=== PATIENT | female | born 1990 | race Caucasian/White ===

== ENCOUNTER 2019-06-19 11:16 | Outpatient (RCR) | payer OTHER, SELFPAY ==
[2019-06-19 12:51] LABS: Hematocrit 29.6 % (37.0-47.0); Hemoglobin 10.3 g/dL (12.0-15.0)
[2019-06-19 13:06] LABS: Glucose 1 Hour PP 50gm Dose 94 mg/dL
[2019-06-19 13:47] LABS: HIV 1/2 Ab P24 Ag Result Negative (Negative)
[2019-06-19] MEDS: RHO(D) IMMUNE GLOBULIN 300 MCG SYRINGE IM (17:07)
[2019-06-20 10:15] LABS: Rapid Plasma Reagin Non-Reactive (NonReactive)
== END 2019-09-17 23:59 | disposition home or self-care (01) ==
LOC: ANHLAB 11:16
PROVIDERS: Visit Provider Obstetrics & Gynecology
DX: Z36.89 Encounter for other specified antenatal screening (principal); Z29.13 Encounter for prophylactic Rho(D) immune globulin; O36.0990 Maternal care for other rhesus isoimmunization, unspecified trimester, not applicable or unspecified; Z3A.00 Weeks of gestation of pregnancy not specified
CPT/HCPCS: 36415; 82947; 85014; 85018; 86592; 86703; 90384; 96372; G0432; J2790

== ENCOUNTER 2019-07-14 00:53 | Observation (INO) | payer OTHER, SELFPAY ==
[2019-07-14 01:16] VITALS: BP 104/69; PULSE 83
[2019-07-14 01:34] VITALS: BMI 29.7
[2019-07-14 01:49] LABS: Add Urine Microscopic? YES; Appearance Urine Cloudy (Clear); Bacteria Urine Trace /hpf; Bilirubin Urine Negative (Negative); Blood Urine Negative (Negative); Color Urine Yellow (Yellow); Glucose Urine UA Negative (Negative); Ketones Urine Negative (Negative); Leukocyte Esterase Ur Trace LEU/UL (Negative); Mucus Urine Few /lpf; Nitrate Urine Negative (Negative); Protein Urine Negative (Negative); RBC Urine 0-2 /hpf (0-2); Specific Grav Ur 1.017 (1.001-1.035); Squamous Epithelial Cell Urine Many /hpf (Few); Urobilinogen Urine Negative mg/dL (<2.0)
--- NOTE | 2019-07-17 12:17 | P.PNOB_ITS ---
OB - Triage/Final Diagnosis Evaluation Laboratory results: Laboratory Tests 07/14/19 01:28 Urine Color Yellow Urine Appearance Cloudy H Urine pH 6.0 Ur Specific [place] 1.017 Urine Protein Negative Urine Glucose (UA) Negative Urine Ketones Negative Ur Blood (Man) Negative Urine Nitrate Negative Urine Bilirubin Negative Urine Urobilinogen Negative Leukocyte Esterase Rfl Trace H Urine RBC 0-2 Urine WBC 4-6 H Ur Squamous Epith Cells Many H Urine Bacteria Trace Urine Mucus Few H Final Diagnosis (1) contractions: Code(s): O47.9 - False labor, unspecified Status: Acute
== END 2019-07-14 02:05 | disposition home or self-care (01) ==
PROVIDERS: Admitting Provider Obstetrics & Gynecology; Visit Provider Obstetrics & Gynecology
DX: O47.03 False labor before 37 completed weeks of gestation, third trimester (principal); Z3A.31 31 weeks gestation of pregnancy
CPT/HCPCS: 81001; G0378; G0379

== ENCOUNTER 2019-09-05 20:47 | Inpatient (IN) | payer OTHER, SELFPAY ==
[2019-09-05 22:32] VITALS: BP 96/63; PULSE 112
[2019-09-05] MEDS: LACTATED RINGERS 1,000 ML 125 ML IV CONT (22:57)
[2019-09-05 23:00] VITALS: BP 106/69; PULSE 77; BMI 30.2
[2019-09-05 23:01] VITALS: BP 101/52; PULSE 77
--- NOTE | 2019-09-05 23:07 | LDADM ---
This patient, Donna Cross, was admitted to Labor/Delivery/Recovery 103 on 09/05/19 at 20:47. Plans for labor, pain management and were discussed with patient. Patient/family oriented to hospital policies and general routines including ID bracelet, bed and alarms, visiting hours, pain management, procedures, bathroom and other care routines, personal items, smoking policy, room service/diet and guest tray routines, infant security routines, and visiting hours. Patient/Family are encouraged to report perceived risks to care and to ask questions if they do not understand what they are told or what they should do. See OBIX for further documentation.
[2019-09-05 23:10] VITALS: BMI 31.4
[2019-09-05 23:16] VITALS: BP 108/62; PULSE 91
[2019-09-05 23:18] LABS: Basophils Percent Auto 0.3 % (0.2-1.2); Eosinophils Absolute Auto 0.1 K/mm3 (0-0.3); Eosinophils Percent Auto 0.8 % (0-4.4); Hematocrit 34.7 % (37.0-47.0); Hemoglobin 11.9 g/dL (12.0-15.0); Immature Granulocyte Absolute 0.06 K/mm3 (0.00-0.031); Immature Granulocyte Percent A 0.6 % (0-0.5); Lymphocytes Percent Auto 23.2 % (18.3-44.2); Mean Corpuscular HGB Conc 34.3 g/dl (32-36); Mean Corpuscular Hemoglobin 31.4 pg (26-34); Mean Corpuscular Volume 91.6 fl (80-100); Mean Platelet Volume 10.3 fl (7.4-10.4); Monocytes Absolute Auto 0.6 K/mm3 (0.1-0.6); Monocytes Percent Auto 5.9 % (2.6-8.5); Neutrophils Absolute Auto 7.5 K/mm3 (1.3-6.7); Neutrophils Percent Auto 69.2 % (45.5-73.1); Platelet Count Result 250 k/mm3 (150-375); Red Blood Count 3.79 M/mm3 (4.2-5.4); Red Cell Distribution Width 14.3 % (11.5-14.5); White Blood Count 10.8 K/mm3 (4.5-10.0)
[2019-09-05 23:31] VITALS: BP 111/62; PULSE 89
[2019-09-05 23:46] VITALS: BP 134/78; PULSE 72
[2019-09-06] VITALS (30 sets, daily range): BP systolic 91–140; BP diastolic 36–96; PULSE 73–112; RESP 16–20; TEMP 36.4–36.9; O2SAT 97–100
--- NOTE | 2019-09-06 00:42 | WPDOBADMIT ---
Obstetrics - Admit Note Admission Note: record reviewed. No pertinent additions to the history and/or any subsequent changes in the physical findings that are not consistent with the expected course of the were found. Pt arrived in labor intact, anticipate vaginal delivery. Additions to the history and/or subsequent changes in the physical findings follow. None.
[2019-09-06 01:24] LABS: Amphetamine Screen Urine Negative (Negative); Barbiturate Screen Urine Negative (Negative); Benzodiazepines Screen Urine Negative (Negative); Cannabinoid Screen Urine Negative (Negative); Cocaine Screen Urine Negative (Negative); Methadone Screen Urine Negative (Negative); Opiate Screen Urine Negative (Negative); Phencyclidine Screen Urine Negative (Negative)
[2019-09-06] MEDS: OXYTOCIN 30 UNITS/NS 500 ML 30 UNITS/500 ML BAG 999 UNITS IV CONT (01:25)
--- NOTE | 2019-09-06 01:33 | PM.OBPRVD ---
OB - Delivery Note Procedure Delivery date: 09/06/19 Procedure: vaginal delivery events: No Care Intrapartal events: None Induction method: none Delivery monitor: external FHT and external uterine Route of delivery: Laceration description: None Specimen: No Estimated blood loss (mL): 125 Narrative: mother and baby skin to skin Baby Date of : 09/06/19 Time of : 01:19 Weeks of gestation at delivery: 39 Infant gender: Female Weight (pounds): 6 Weight (ounces): 13 presentation: vertex Placenta delivery description: Spontaneous cord vessel description: 3 Vessels and Clamped/Cut score one minute: 8 score five minutes: 9
[2019-09-06] MEDS: IBUPROFEN 600 MG TABLET PO ×3 (02:24→16:55)
[2019-09-06] MEDS: OXYTOCIN 30 UNITS/NS 500 ML 30 UNITS/500 ML BAG 125 UNITS IV CONT (02:25)
[2019-09-06] MEDS: WITCH HAZEL 40 PADS 1 PAD TOPICAL (03:31)
[2019-09-06] MEDS: BENZOCAINE 20% AER SPR (*SP) 56 GM CAN 1 SPRAY TOPICAL (03:31)
--- NOTE | 2019-09-06 07:39 | PC.NURSE ---
Patient transferred to post room #289 via wheelchair. Support person present. Oriented to unit, room, information board, rooming in, admission packet and security measures. Patient verbalizes understanding.
[2019-09-06] MEDS: MULTIVIT/MIN/PREN/FOL AC/IRON TABLET 1 TAB PO (08:51)
[2019-09-06] MEDS: DOCUSATE SODIUM 100 MG CAPSULE PO ×2 (08:51→16:54)
[2019-09-06 09:31] LABS: Rapid Plasma Reagin Non-Reactive (NonReactive)
--- NOTE | 2019-09-06 16:29 | PC.NURSE ---
Observed mother is able to independently latch infant with appropriate positioning/alignment. She denies any nipple discomfort, is feeding as required and waking infant to feed if needed. Mother has nipples pierced, discussed how piercings may impact transfer of milk.
[2019-09-07 06:32] LABS: Hematocrit 33.4 % (37.0-47.0); Hemoglobin 11.2 g/dL (12.0-15.0)
--- NOTE | 2019-09-07 07:55 | P.PNOB_ITS ---
OB - PN: Subj Subjective Date/time seen: 09/07/19 07:55 Patient comments: no complaints, pain well controlled and other (Lochia similar to menses) [place] baby status: doing well OB - PN: Obj Data Labs CBC & Chem 7: 09/07/19 05:12 Labs: Laboratory Results - last 24 hr 09/05/19 09/07/19 22:54 05:12 Hgb 11.2 L Hct 33.4 L RPR Non-reactive OB - PN A/P Plan day: 1 (s/p vaginal delivery, doing well) Plan: routine care, discharge home and other (Follow up in 4 weeks) Time Spent With Patient Time: Total time spent is greater than 50% in coordination of care (as documented) at patient's floor/unit and/or counseling patient: Exam Const: General: no acute distress GI: Inspection: other (Fundus firm and nontender at umbilicus) GI Palp: Yes Soft to palpation and No Tenderness to palpation present (GI) Extrem: General: no edema
[2019-09-07 08:00] VITALS: BP 103/60; PULSE 74; RESP 18; TEMP 36.2
[2019-09-07] MEDS: IBUPROFEN 600 MG TABLET PO (08:53)
[2019-09-07] MEDS: LANOLIN (LANSINOH) 7.5 GM CREAM 1 APPLIC TOPICAL (08:53)
[2019-09-07] MEDS: BENZOCAINE 20% AER SPR (*SP) 56 GM CAN 1 SPRAY TOPICAL (08:53)
[2019-09-07] MEDS: DOCUSATE SODIUM 100 MG CAPSULE PO (08:53)
[2019-09-07] MEDS: WITCH HAZEL 40 PADS 1 PAD TOPICAL (08:53)
[2019-09-07] MEDS: MULTIVIT/MIN/PREN/FOL AC/IRON TABLET 1 TAB PO (08:53)
--- NOTE | 2019-09-07 10:15 | PC.NURSE ---
Mother is able to independently latch infant with appropriate positioning/alignment. She denies any nipple discomfort, is feeding as required and waking to feed if needed. has had 9 effective feedings in the past 24 hours, and is currently meeting outcomes for weight, output, jaundice and feeding frequencies. Mother states she feels confident to continue effective at home. Reviewed transition to breast milk, signs of adequate intake, and engorgement/relief. Instructed to call ICP if intake/output less than required. Reviewed regular medications mother is taking. Information provided per Vera. Reviewed community resources on the [facility] website and in the Mom/Baby guide. Information on outpatient services provided. Mother has no further questions at this time.
[2019-09-08 09:27] VITALS: BP 102/55; PULSE 72; RESP 22; TEMP 36.8
--- NOTE | 2019-09-09 02:28 | PM.OBDSVD ---
OB - DS: Summary OB Procedures : None OB Procedures Intrapartum: Spontaneous Vag Delivery OB Procedures: : None Time Spent with Patient Time attestation: Total time spent providing and/or coordinating discharge services: Discharge Plan Discharge Attending physician on discharge: Jaxon Patel Consulting providers: Georgie Pacheco Discharging Clinician: Cat Saleh Patient Disposition: Home, Self-Care Activity: may shower and pelvic rest Diet: regular Discharge Instructions: Education: Mom and Baby Guide Given to: Mother Follow-Up: Call your delivering provider's office for an appointment to be seen in: 4 Weeks Mom and baby should come to the [facility] for the follow-up appointment. Appointment Date/Time: September 08, 2019 at 9:00 am What to expect at your follow-up visit: Blood Pressure Check Physical Assessment Call [phone] if you are unable to keep your appointment time. BREAST CARE: 1. Wear a snug supportive bra. 2. For engorgement discomfort: Breast Feeding: A. Apply warm moist washcloths B. Express milk as needed to relieve engorgement C. Wear loose clothing 3. For sore nipples: A. Identify correct latch-on B. Apply warm moist washcloths before and after nursing C. Air dry nipples after nursing D. May apply Lansinoh cream to nipples EPISIOTOMY/PERINEAL CARE: 1. Until bleeding stops, use your carolyn bottle after urinating 2. Change your pad frequently throughout the day 3. You may take sitz baths several times a day (fill your bathtub with warm water and soak for 20 minutes.) Do NOT bathe in the water 4. No tub baths until seen by your physician - You may shower ACTIVITY: 1. Rest as much as possible. 2. Do not exercise or lift anything heavier than your baby (such as laundry or other children.) 3. Avoid stairs or driving as much as possible. 4. Do not put anything into the vagina. No douching, tampons, or sexual activity until seen by physician. NOTIFY PHYSICIAN IF YOU HAVE ANY QUESTIONS OR IF ANY OF THE FOLLOWING SYMPTOMS OCCUR: 1. If your vaginal bleeding becomes foul smelling. 2. If your vaginal bleeding becomes more heavy than a period or if your bleeding changes from pink to bright red. However, you may pass an occasional walnut-sized clot once or twice for the first week . 3. If you experience a sharp, shooting pain in you calves. 4. If you discover a hard, reddened area on your breast or if you experience flu-like symptoms. DIET: 1. Eat regular, well-balanced meals. 2. Drink plenty of fluids daily. If , drink to thirst. Patient Instructions: Antibiotic Form Stand Alone Forms: General Discharge Information Follow-up/Referrals: Cat Saleh MD [Physician] - Georgie Pacheco CNM [Certified Nurse Movie Shot Camera Operator] - 4 Weeks Discharge Medications: New ibuprofen 600 mg Tablet 600 mg PO Q6H PRN (Reason: Cramping) Qty: 60 RF: 0 Continued Vitamin 27 mg iron- 0.8 mg Tablet 1 tablet PO DAILY RF: 0 ferrous sulfate 27 mg iron Tablet 27 mg PO BID RF: 0 Date of admission: 09/05/19 20:47 Primary Care Provider: UNKNOWN,DOCTOR Admitting Provider: Jaxon Patel Discharge Date/Time: 09/07/19 12:51 Attending physician on admission: Cat Saleh
== END 2019-09-07 12:51 | disposition home or self-care (01) | DRG 560 ==
LOC: ANHLDR 22:58 → ANHOB2 09-06 11:43 → ANHLDR 09-08 12:47 → ANHOB2 09-08 12:47
PROVIDERS: Advanced Practice Midwife; Admitting Provider Obstetrics & Gynecology; Visit Provider Obstetrics & Gynecology
DX: O99.824 Streptococcus B carrier state complicating childbirth (principal); Z37.0 Single live birth; Z3A.39 39 weeks gestation of pregnancy
CPT/HCPCS: 36415; 80307; 85014; 85018; 85025; 86592; 86850; 86880; 86900; 86901; 86902; A9270; J2590; J2795; J3370; J7120

== ENCOUNTER 2023-05-10 13:12 | Outpatient (CLI) | payer OTHER, SELFPAY ==
--- NOTE | ~2023-05-10 | US_ITS ---
US breast BI complete DATE: 05/10/2023 14:33 INDICATION: Intermittent upper outer quadrant left breast pain with menstrual cycle. No family histor y of breast cancer. No prior imaging. TECHNIQUE: Real-time imaging of both complete breasts including all 4 quadrants and subareolar areas COMPARISON: None FINDINGS: No suspicious mass or shadowing of either breast is detected. No cyst is noted. IMPRESSION: BI-RADS Category 1: Negative Recommendation: Routine mammographic screening beginning at age 40 unless the patient is symptomatic or if there are significant physical findings prior to that time Reviewed, dictated and finalized at [facility]. Reviewed, dictated and finalized at [facility]. 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
== END 2023-05-10 13:13 | disposition home or self-care (01) ==
LOC: ANHIMG 13:14
PROVIDERS: Visit Provider Obstetrics & Gynecology
DX: N64.4 Mastodynia (principal)
CPT/HCPCS: 76641

== ENCOUNTER 2025-04-11 11:56 | Outpatient (CLI) | payer OTHER, SELFPAY ==
--- OUTSIDE RECORDS SUMMARY | 2025-04-11 13:25 | XMS_ITS | Clinical Summary ---
Author Organization [facility] Address [address] [place] [phone] Phone Care Team Providers Care Patient Care Secretary Name Role Phone Provider, None Primary Care Provider Unavailabl e Allergies Active Allergy Reactions Criticality Noted Date Comments Amoxicillin-Pot Clavulanate Itching 05/09/20 Medications FLUoxetine (PROzac) 10 MG Capsule Take 10 mg by mouth daily. 03/07/2024 Active Active Problems No known active problems Social History Tobacco Use Types Packs/Day Years Used Date Smoking Tobacco: Never Smokeless Tobacco: Never Alcohol Use Standard Drinks/Week Comments Not Currently 0 (1 standard drink = 0.6 oz pur e alcohol) Sexually Active Control Partners Comments Not Currently Comments No Sex and Gender Information Value Date Recorded Sex Assigned at Not on file Legal Sex Female 8:55 PM CDT Gender Identity Not on file Sexual Orientation Not on file Last Filed Vital Signs Vital Sign Reading Time Taken Comments Blood Pressure 120/66 05/09/2024 5:45 PM KEY 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 Pulse 97 05/09/2024 5:45 PM KEY 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 Temperature 36.7 C (98 F) 05/09/2024 5:45 PM KEY 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 tylenol at 1700 hours Respiratory Rate 18 05/09/2024 5:4 5 PM KEY 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 Oxygen Saturation 99% 05/09/2024 5:4 5 PM KEY 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 Inhaled Oxygen Concentration - - Weight - - Height - - Body Mass Index - - Plan of Treatment Health Maintenance Due Date Last Done Comments Hepatitis C Virus (HCV) Screening 1992 Hepatitis B Immunization (1 of 3 - 19+ 3-dose series) 2011 Pap Smear 2013 Human Papillomavirus (HPV) Immunization (1 - 3-dose SCDM series) 2019 Cervical Cancer Screening (CCS) 2022 HPV/Cotest 2022 Influenza Immunization (#1) 2025 03/25/2019 SARS-COV-2 Immunization ( season) 2025 Respiratory Syncytial Virus (RSV) Immunization (Adult) (1 - 1-dose 75+ series) 2067 TdaP Immunization Completed 05/26/2019 Meningococcal Immunization (ACWY) Aged Out No longer eligible based on patient's age to complete this topic Pneumococcal Immunization Combined Aged Out No longer eligible based on patient's age to complete this topic Rotavirus Immunization Aged Out No lo nger eligible based on patient's age to complete this topic Insurance MEDICAID [place] Care Teams Patient Care Secretary Relationship Specialty Start Date End Date Provider, None [place] PCP - General 05/05/24
--- OUTSIDE RECORDS SUMMARY | 2025-04-11 13:25 | XMS_ITS | Clinical Summary ---
Author Organization [facility] Address [address] [place] [address] [place] [address] Care Team Providers Care Cottonseed Meat Presser Name Role Phone Unavailable Primary Care Provider Unavailabl e Source Comments [facility],non-owned Affiliates and Associated Physician Practices is amultiple site organization consisting of ambulatory clinics and hospital sitesin [place], [place]. This disclosure is being madepursuant to the Care Everywhere program and may not contain all information available regarding this patient. Last updated 18.[facility] Allergies Active Allergy Reactions Criticality Noted Date Comments Penicillins Diarrhea 11/27/2018 Medications * Be aware that medications may not be up to date on this document. Alwaysverify current medications with the patient. fluticasone propionate (FLONASE) 50 MCG/ACT nasal sprayIndications :Upper respiratory tract infection, unspecified type Dinosaur 2 sprays into each nostril once daily 1 bottles 11/27/2018 Active benzonatate (TESSALON) 200 MG capsuleIndicatio ns:Upper respiratory tract infection, unspecified type Take 1 capsule by mouth 3 times daily as needed for Cough 30 capsule 11/27/2018 Active Family History Medical History Relation Name Comments Lymphoma Mother Relation Name Status Comments Mother Social History Tobacco Use Types Packs/Day Years Used Date Smoking Tobacco: Every Day Cigarettes Smokeless Tobacco: Never Comments:Vapes Comments No Sex and Gender Information Value Date Recorded Sex Assigned at Not on file 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 Gender Identity Not on file Sexual Orientation Not on file Last Filed Vital Signs Vital Sign Reading Time Taken Comments Blood Pressure 112/70 11/27/2018 11:29 AM CDT Pulse 72 11/27/2018 11:29 AM CDT Temperature 36.7 C (98.1 F) 11/27/2018 11:29 AM CDT Respiratory Rate 16 11/27/2018 11:29 AM CDT Oxygen Saturation 98% 11/27/2018 11:29 AM CDT Inhaled Oxygen Concentration - - Weight 56.7 kg (125 lb) 11/27/2018 11:29 AM CDT Height 160 cm (5' 3) 11/27/2018 11:29 AM CDT Body Mass Index 22.14 11/27/2018 11:29 AM CDT Plan of Treatment Health Maintenance Due Date Last Done Comments HIV SCREENING 2007 HEPATITIS C SCREENING 04/30/2010 DTAP/TDAP/TD VACCINES (1 - Tdap) 2011 HEPATITIS B VACCINE (1 of 3 - 19+ 3-dose series) 2011 HPV VACCINE (1 - 3-dose SCDM series) 2019 DEPRESSION SCREENING 06/14/2024 COVID-19 VACCINE (1 - 2023-2 5 season) 2025 INFLUENZA VACCINE (#1) 2025 ZOSTER VACCINE (1 of 2) 2042 HIB VACCINE Aged Out No longer eligi ble based on patient's age to complete this topic MENINGOCOCCAL (Group B) VACC INE SHARED DECISION-MAKING Aged Out No longer eligibl e based on patient's age to complete this topic MENINGOCOCCAL GROUPS A/C/Y/W VACCINE Aged Out No longer eligible b ased on patient's age to complete this topic PNEUMOCOCCAL VACCINE Aged Out No long er eligible based on patient's age to complete this topic Insurance [facility]
--- OUTSIDE RECORDS SUMMARY | 2025-04-11 13:25 | XMS_ITS | Data Portability ---
Author Organization [facility] Address [address] [place] [place] [address] Assessment Encounter Date Assessment Date Assessment LastModified by Organization Details LastModified Time 01/17/2025 01/17/2025 Patient is _15__weeks . Discussed plan. Not available 01/17/2025 17:27:17 02/14/2025 02/14/2025 Patient is _19__weeks . Discussed plan. [email or web address] Not available 02/14/2025 15:12:10 03/14/2025 03/14/2025 Patient is _23__weeks . Discussed plan. [email or web address] Not available 03/14/2025 15:11:31 Plan of Treatment Reminders Order Date Submit Date Provider Last Modified By Organization Details Last Modified Time Details Appointments OB ROUTINE 2024 02:00P M Georgie Pacheco CNM Not available Not available Not available Lab None recorded. Referral None recorded. Procedures None recorded. Surgeries None recorded. Imaging US, obstetric , 2nd or 3rd trimester 2024 025 [email or web address] [address], [address], [place], [address], 02/14/2025 17:08:27 US, obstetric , nuchal transluce ncy 2024 025 [email or web address] [address], [address], [place], [address], 12/21/2024 20:41:29 Medication Orders Zithromax Z-Murray 250 mg tablet 2024 025 HAI [id number], [address], [place], [id number], 03/14/2025 14:59:32 Patient TargetsNo targets recorded. Patient InstructionsNo instructions recorded. Reason for Referral None Reported. Results Created Date Observation Date Name Description Value Unit Range Abnormal Flag Note LastModifiedBy Organization Detail LastModifiedTime 12/15/19 25 12/14/2024 [UNIT Y] ANEUP LOIDY NIPT fraction 8.0% normal Not Available [facility] [address], [place], [address], 12/14/2024 23:41:29 12/15/19 25 12/14/2024 [UNIT Y] ANEUP LOIDY NIPT 22Q11.2 microdeletio n LOW RISK <1 in 10,000 normal Not Available [facility] [address], [place], [address], 12/14/2024 23:41:29 12/15/19 25 12/14/2024 [UNIT Y] ANEUP LOIDY NIPT sex chromosome aneuploidy NOT DETECT ED normal Not Available [facility] [address], [place], [address], 12/14/2024 23:41:29 12/15/19 25 12/14/2024 [UNIT Y] ANEUP LOIDY NIPT monosomy X LOW RISK <1 in 10,000 normal Not Available [facility] [address], [place], [address], 12/14/2024 23:41:29 12/15/19 25 12/14/2024 [UNIT Y] ANEUP LOIDY NIPT trisomy 13 LOW RISK <1 in 10,000 normal Not Available [facility] [address], [place], [address], 12/14/2024 23:41:29 12/15/19 25 12/14/2024 [UNIT Y] ANEUP LOIDY NIPT trisomy 18 LOW RISK <1 in 10,000 normal Not Available [facility] [address], [place], [address], 12/14/2024 23:41:29 12/15/19 25 12/14/2024 [UNIT Y] ANEUP LOIDY NIPT trisomy 21 LOW RISK <1 in 10,000 normal Not Available [facility] [address], [place], [address], 12/14/2024 23:41:29 12/15/19 25 12/14/2024 [UNIT Y] ANEUP LOIDY NIPT sex FEMALE normal Not Available [facility] [address], [place], [address], 12/14/2024 23:41:29 12/15/19 25 12/14/2024 [UNIT Y] ANEUP LOIDY NIPT gestation SINGLE TON normal Not Available [facility] [address], [place], [address], 12/14/2024 23:41:29 12/15/19 25 12/14/2024 [UNIT Y] ANEUP LOIDY NIPT for detailed report, see pdf See PDF normal Not Available [facility] [address], [place], [address], 12/14/2024 23:41:29 12/19/19 25 12/18/2024 [UNIT Y] ELISABET Ayala sickle cell disease/beta -thalassemia /hemoglobino pathies carrier screen NEGATI VE normal Not Available [facility] [address], [place], [address], 12/18/2024 21:16:58 12/19/19 25 12/18/2024 [UNIT Y] ELISABET Ayala alpha-thalas semia carrier screen NEGATI VE normal Not Available [facility] [address], [place], [address], 12/18/2024 21:16:58 12/19/19 25 12/18/2024 [UNIT Y] ELISABET DAISY Ayala cystic fibrosis carrier screen NEGATI VE normal Not Available [facility] [address], [place], [address], 12/18/2024 21:16:58 12/19/19 25 12/18/2024 [UNIT Y] ELISABET DAISY Ayala spinal muscular atrophy carrier screen NEGATI VE 2 SMN1 copies , SNP not presen t normal Not Available [facility] [address], [place], [address], 12/18/2024 21:16:58 12/19/19 25 12/18/2024 [UNIT Y] ELISABET DAISY Ayala for detailed report, see pdf See PDF normal Not Available [facility] [address], [place], [address], 12/18/2024 21:16:58 11/29/19 25 11/28/2024 IMAGE GUIDE D PAP AND HPV REGAR DLESS image guided Pap, HPV regardless of Pap result SEE RESULT S BELOW CASE REPOR T: Cytol ogy Gynec ologi lam Repor t Case: [id number] Autho milana g Provi steph: Rizwana Fernandez MD Colle cted: 11/28 1701 Order ing Locat ion: [place] Path[facility] log[facility] Recei kenji: 11/29 0915 First Scree n: Luzma Bower , CT Speci men: Scresilas cintron Pap - Image d, Cervi x STATE MENT OF ADEQU ACY: Satis facto ry for evalu ation Trans forma tion zone compo nent prese nt ----- ----- ----- ----- ----- ----- ----- ----- ----- ----- ----- ----- ----- ----- ----- ----- ----- ---- FINAL DIAGN OSIS: Negat pelon for Intra epith elial Lesio jd or Cassie haro (NIL) . Elect michelle talbert by Luzma Bower , CT on 2024 at 0747 CDT ----- ----- ----- ----- ----- ----- ----- ----- ----- ----- ----- ----- ----- ----- ----- ----- ----- ---- HPV RESUL TS: HPV mRNA E6/E7 : No HPV mRNA Detec trisha NOTE: This high risk HPV mRNA assay detec ts fourt een high- risk HPV types (16, 18, 31, 33, 35, 39, 45, 51, 52, 56, 58, 59, 66, 68) witho ut diffe renti ation . COMME NT: This speci men was revie wed by a Cytot echno logis t and/o r Patho logis t (as indic ated in this repor t) after evalu ation using the Thinp rep Imagi ng Syste m. CLINI LAM INFOR MATIO N: Menst rual Statu s: LMP (if appli cable ): Clini lam Histo ry/Pr eviou s Pap: Type of Neopl abby (if appli cable ): Signi fican t Clini lam Findi ngs: Other Histo ry: Hormo laurence (if appli cable ): PAP EDUCA OSMAN L NOTE: The Pap Test is a scree abdulaziz test with an inher ent false negat pelon rate. Liqui d-bas ed sampl ing may decre ase, but will not elimi ibis, false negat pelon resul ts. A negat pelon resul t does not precl ude the prese nce and/o r devel opmen t of disea se, since the prese nce of abnor mal cells in the sampl e depen ds on the locat ion of the lesio n and sampl ing techn ique. Lynn nued regul ar scree abdulaziz is the best metho d of cance r preve ntion . If repor trisha cytol ogic findi ng do not corre late with physi lam and/o r histo rical findi ngs, lavern madison is recom tere d, as clini andrea escalera nted. Not Available [facility] (Lab) [address] [facility], [place], [address], 11/30/2024 08:52:56 11/29/1911/28/2024 CT/GC AND TRICH OMONA S VAGIN ANTON (RRNA ), THINP REP VIAL CT/GC and trichomonas vaginalis (rrna), thinprep SEE RESULT S BELOW negati ve CHLAM YDIA TRACH OMATI S, PCR: Negat pelon NEISS ERIA GONOR RHOEA E, PCR: Negat pelon TRICH OMONA S VAGIN ANTON RIBOS OMAL RNA (RRNA ): Negat pelon Not Available [facility] (Lab) [address] [facility], [place], [address], 11/30/2024 08:52:57 12/08/19 25 12/07/2024 CBC W/DIF F WBC 9.0 10'3/ uL 3.5-10 .5 Not Available [facility] (Lab) [address] [facility], [place], [address], 12/08/2024 11:39:58 12/08/19 25 12/07/2024 CBC W/DIF F RBC 3.94 10'6/ uL (based on docume nted legal sex) 3.80-5 .20 Not Available [facility] (Lab) [address] [facility], [place], [address], 12/08/2024 11:39:58 12/08/19 25 12/07/2024 CBC W/DIF F HGB 12.0 g/dL (based on docume nted legal sex) 11.6-1 5.4 Not Available [facility] (Lab) [address] [facility], [place], [address], 12/08/2024 11:39:58 12/08/19 25 12/07/2024 CBC W/DIF F HCT 36.5 % (based on docume nted legal sex) 34.0-4 5.0 Not Available [facility] (Lab) [address], [place], [address], 12/08/2024 11:39:58 12/08/19 25 12/07/2024 CBC W/DIF F MCV 92.6 fL 80.0-9 9.0 Not Available [facility] (Lab) [address], [place], [address], 12/08/2024 11:39:58 12/08/19 25 12/07/2024 CBC W/DIF F MCH 30.5 pg 27.0-3 4.0 Not Available [facility] (Lab) [address], [place], [address], 12/08/2024 11:39:58 12/08/19 25 12/07/2024 CBC W/DIF F MCHC 32.9 g/dL 32.0-3 5.5 Not Available [facility] (Lab) [address], [place], [address], 12/08/2024 11:39:58 12/08/19 25 12/07/2024 CBC W/DIF F RDW 13.3 % 11.0-1 5.0 Not Available [facility] (Lab) [address], [place], [address], 12/08/2024 11:39:58 12/08/19 25 12/07/2024 CBC W/DIF F plt 294 10'3/ uL 150-40 0 Not Available [facility] (Lab) [address], [place], [address], 12/08/2024 11:39:58 12/08/19 25 12/07/2024 CBC W/DIF F MPV 10.4 fL 8.8-12 .1 Not Available [facility] (Lab) [address] [facility], [place], [address], 12/08/2024 11:39:58 12/08/19 25 12/07/2024 CBC W/DIF F NRBC's 0.0 % 0.0 Not Available [facility] (Lab) [address] [facility], [place], [address], 12/08/2024 11:39:58 12/08/19 25 12/07/2024 CBC W/DIF F absolute NRBCs 0.0 10'3/ uL no refere nce range establ ished Not Available [facility] (Lab) [address] [facility], [place], [address], 12/08/2024 11:39:58 12/08/19 25 12/07/2024 CBC W/DIF F neutrophils 71.1 % 34.0-7 3.0 Not Available [facility] (Lab) [address] [facility], [place], [address], 12/08/2024 11:39:58 12/08/19 25 12/07/2024 CBC W/DIF F lymphocytes 22.8 % 15.0-5 0.0 Not Available [facility] (Lab) [address] [facility], [place], [address], 12/08/2024 11:39:58 12/08/19 25 12/07/2024 CBC W/DIF F monocytes 4.7 % 1.0-15 .0 Not Available [facility] (Lab) [address] [facility], [place], [address], 12/08/2024 11:39:58 12/08/19 25 12/07/2024 CBC W/DIF F eosinophils 0.7 % 0.0-8. 0 Not Available [facility] (Lab) [address] [place], [address], 12/08/2024 11:39:58 12/08/19 25 12/07/2024 CBC W/DIF F basophils 0.4 % 0.0-2. 0 Not Available [facility] (Lab) [address] [facility], [place], [address], 12/08/2024 11:39:58 12/08/19 25 12/07/2024 CBC W/DIF F immature granulocytes 0.3 % no define d refere nce range Immat ure Granu locyt es (IG) repre sents autom ated enume ratio n of Metam yeloc ytes, Myelo cytes and Promy elocy ortega when IG is < 5%. Blast s are not inclu ded in IG and repor trisha separ ately if prese nt. Not Available [facility] (Lab) [address] [facility], [place], [address], 12/08/2024 11:39:58 12/08/19 25 12/07/2024 CBC W/DIF F absolute neutrophils 6.4 10'3/ uL 1.5-8. 0 Not Available [facility] (Lab) [address] [facility], [place], [address], 12/08/2024 11:39:58 12/08/19 25 12/07/2024 CBC W/DIF F absolute lymphocytes 2.1 10'3/ uL 1.0-4. 0 Not Available [facility] (Lab) [address] [facility], [place], [address], 12/08/2024 11:39:58 12/08/19 25 12/07/2024 CBC W/DIF F absolute monocytes 0.4 10'3/ uL 0.2-1. 0 Not Available [facility] (Lab) [address] [facility], [place], [address], 12/08/2024 11:39:58 12/08/19 25 12/07/2024 CBC W/DIF F absolute eosinophils 0.1 10'3/ uL 0.0-0. 6 Not Available [facility] (Lab) [address] [facility], [place], [address], 12/08/2024 11:39:58 12/08/1912/07/2024 CBC W/DIF F absolute basophils 0.0 10'3/ uL 0.0-0. 3 Not Available [facility] (Lab) [address], [place], [address], 12/08/2024 11:39:58 12/08/19 25 12/07/2024 CBC W/DIF F absolute immature granulocytes 0.0 10'3/ uL 0.00-0 .10 Refer ence range s for nonbi nary/ inter sex or unspe cifie d gende r patie nts have not been estab lishe d. Pleas e refer [facility] for range s estab lishe d for cisge nder patie nts and evalu ate in the clini lam [place] xt of the indiv idual patie nt: https :[email or web address] cramer book. nm.or g/gen derx Not Available [facility] (Lab) [address], [place], [address], 12/08/2024 11:39:58 12/08/1912/07/2024 HIV 1/2 ANTIG EN/AN TIBOD Y, REFLE X CONFI RMATI ON HIV antigen/anti body Nonrea ctive nonrea ctive HIV-1 antig en and HIV-1 /HIV- 2 antib odies were not detec trisha. No labor atory evide nce of HIV infec tion. Not Available [facility] (Lab) [address], [place], [address], 12/08/2024 11:39:59 12/08/1912/07/2024 HEPAT ITIS C ANTIB KJ SCREE N, REFLE X TO CONFI RMATI ON hepatitis C antibody Non-re active non-re active Antib odies to HCV Not Detec trisha, does not exclu de the possi bilit y of expos ure to HCV. Not Available [facility] (Lab) [address], [place], [address], 12/08/2024 11:40:00 12/08/19 12/07/2024 HEPAT ITIS B SURFA CE ANTIG EN hepatitis B surface antigen Non-re active non-re active This assay was perfo rmed using [employer] n reage nts and test kits. Value s obtai gavino with other assay metho ds or kits canno t be used inter maldonado eably . Not Available [facility] (Lab) [address] [facility], [place], [address], 12/08/2024 11:40:00 12/08/1912/07/2024 RUBEL LA IGG ANTIB KJ, QUANT rubella antibodies, IgG Reacti ve reacti ve Not Available [facility] (Lab) [address], [place], [address], 12/08/2024 11:40:01 12/08/1912/07/2024 RUBEL LA IGG ANTIB KJ, QUANT rubella antibodies, IgG quant 17.0 IU/mL >=10 Non-r eacti ve (Non- Immun e) <10 IU/mL React pelon (Immu ne) > or = 10 IU/mL Not Available [facility] (Lab) [address] [facility], [place], [address], 12/08/2024 11:40:01 12/08/1912/07/2024 TYPE/ RH/SC REEN ABO/Rh type O NEG Not Available [facility] (Lab) [address] [facility], [place], [address], 12/08/2024 11:40:02 12/08/1912/07/2024 TYPE/ RH/SC REEN antibody screen NEG Not Available [facility] (Lab) [address] [facility], [place], [address], 12/08/2024 11:40:02 12/08/19 25 12/07/2024 TYPE/ RH/SC REEN exp date 2024 23:59 Not Available [facility] (Lab) [address] [facility], [place], [address], 12/08/2024 11:40:02 12/08/19 25 12/07/2024 HEMOG LOBIN A1C hemoglobin A1C 4.7 % 4.0-5. 6 The Ameri can Diabe ortega Assoc iatio n recom mends that a prima ry goal of thera py shoul d be a HBA1C of < 7% and that physi cians shoul d reeva luate the treat ment regim en in patie nts with HBA1C value s consi stent ly > 8%. <5.7% Sherly l 5.7 - 6.4% Incre ased risk for diabe ortega >=6.5 % Diagn ostic of diabe ortega <7.0% Goal of thera py >8.0% Actio n sugge sted Not Available [facility] (Lab) [address] [facility], [place], [address], 12/08/2024 11:40:02 12/08/19 25 12/07/2024 RPR SCREE N, REFLE X TITER /CONF IRMAT ION RPR qualitative Nonrea ctive nonrea ctive Not Available [facility] (Lab) [address] [facility], [place], [address], 12/08/2024 11:40:03 12/21/19 25 12/20/2024 CULTU RE: URINE result report SEE RESULT S BELOW Test: Cultu re: Urine Speci men Sourc e: Urine Voide d Speci men Type: Urine Speci men Date: 025 1737 Resul t Date: 2024 Resul t Statu s: Final resul t Abnor mal: No Resul ting Lab: [facility] [address] [facility] [facility] [address] Tel: CULTU RE ----- ----- ----- --- No growt h in 1 day (dete ction level of 10,00 0 colon ies / ml.) Not Available [facility] (Lab) [address] [facility], [place], [address], 12/21/2024 21:40:34 11/29/1911/28/2024 US, obste tric, 1st trime ster No observ ation record ed. [email or web address] [address], [place], [address], 11/29/2024 07:50:09 12/21/19 25 12/20/2024 US, obste tric, follo w-up No observ ation record ed. [email or web address] [address], [place], [address], 12/25/2024 23:26:07 12/21/19 25 12/20/2024 US, obste tric, nucha l trans lucen cy No observ ation record ed. [email or web address] [address], [place], [address], 12/20/2024 18:15:52 02/15/2002/14/2025 US, obste tric, 2nd or 3rd trime ster No observ ation record ed. [email or web address] [address], [place], [address], 02/14/2025 18:49:12 02/15/2002/14/2025 US, obste tric, follo w-up No observ ation record ed. [address], [place], [address], 02/15/2025 11:29:36 02/15/2002/14/2025 US, obste tric, follo w-up No observ ation record ed. [email or web address] [address], [place], [address], 02/14/2025 17:02:45 Result Notes None recorded. Problems Name Problem SNOMED Code Status Onset Date Resolution Date Notes Provider Name and Address Organization Details Recorded Time Pregnanc y test negative [id number] Completed 201606/19/2020 Encounte r for pregnanc y test, result negative ;Recorde d Elsewher e: No Locat ion: [facility] S ource: EHR Diagnostic Radiologist asif: N Practi ce ID: 0001 Jaycob lable Time: 11:15:00 AM Sadaf Cardenas [facility], [facility] 18:24:34 Insertio n of intraute rine contrace ptive device Completed 201612/11/2020 INSERTIO N OF IUD;Mo rded Elsewher e: No Locat ion: [facility] N Practi ce ID: 0001 Jaycob lable Time: 11:15:00 AM Sadaf Cardenas [facility] 16:47:28 Clinical finding Completed 201606/19/2020 Presence of (intraut erine) contrace ptive device;R ecorded Elsewher e: No Locat ion: [facility] as[facility]: N Practi ce ID: 0001 Jaycob lable Time: 11:15:00 AM Sadaf Cardenas [facility], [facility] 18:24:00 Contrace ption care manageme nt Completed 201806/19/2020 Encounte r for contrace ptive manageme nt, unspecif ied;Mo rded Elsewher e: No Locat ion: [facility]: [facility]: N Practi ce ID: 0001 Jaycob lable Time: 02:00:00 PM Sadaf houser, [facility] 18:23:57 Contrace ptive sheath status [id number] Completed 201806/19/2020 Encounte r for routine checking of intraute rine contrace p dev;Prac jesus ID: 0001 Sadaf Cardenas [facility], [facility] 18:24:59 Spot Sprayer al complica tion of intraute rine contrace ptive device Completed 201806/19/2020 Malposit ion of IUD, initial encounte r;Record ed Elsewher e: No Locat ion: Wili rosen [facility] S ource: [facility] asif: N Practi ce ID: 0001 Jaycob lable Time: 04:30:00 PM Sadaf houser [facility] 18:24:24 Pelvic and perineal pain [id number] Completed 201806/19/2020 Pelvic and perineal pain;Rec orded Elsewher e: No Locat ion: Kylie silas [facility] S ource: [facility] asif: N Practi ce ID: 0001 Jaycob lable Time: 04:30:00 PM Sadaf houser [facility] 18:24:29 Disorder of intraute rine contrace ptive device Completed 201806/19/2020 [facility] compl of intraute rine contrace ptive device, init encntr;R ecorded Elsewher e: No Locat ion: [facility] S ource: [facility] asif: N Practi ce ID: 0001 Jaycob lable Time: 04:00:00 PM Sadaf houser [facility] 18:24:06 Removal of intraute rine device Completed 201806/19/2020 REMOVAL OF IUD;Mo rded Elsewher e: No [facility]: [facility] asif: N Practi ce ID: 0001 Jaycob lable Time: 09:00:00 AM Sadaf houser [facility] 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 18:24:45 Gestatio n period, 9 weeks [id number] Completed 201806/19/2020 9 weeks gestatio n of pregnanc y;Record ed Elsewher e: No Locat ion: [facility] S ource: EHR Diagnostic Radiologist asif: N Vadimti ce ID: 0001 Jaycob lable Time: 02:00:00 PM Sadaf Cardenas [facility] 18:24:20 Pregnanc y detectio n examinat ion Completed 201806/19/2020 Encounte r for pregnanc y test, result positive ;Recorde d Elsewher e: No Locat ion: [facility] S ource: EHR Diagnostic Radiologist asif: N Vadimti ce ID: 0001 Jaycob lable Time: 02:00:00 PM Sadaf Cardenas [facility] 18:24:32 Antenata l screenin g Completed 201806/19/2020 Encounte r for antenata l screenin g for nuchal transluc ency;Rec orded Elsewher e: No Locat ion: [facility] S ource: EHR Diagnostic Radiologist asif: N Vadimti ce ID: 0001 Jaycob lable Time: 10:00:00 AM Sadaf houser, [facility] 18:23:54 Rubella screenin g status [id number] Completed 201806/19/2020 Encounte r for antenata l screenin g, unspecif ied;Mo rded Elsewher e: No Locat ion: [facility] S ource: EHR Diagnostic Radiologist asif: N Vadimti ce ID: 0001 Jaycob lable Time: 10:00:00 AM Sadaf houser [facility] 18:24:40 Developm ental disorder Completed 201812/11/2020 Malforma tion of placenta , unspecif ied, first trimeste r;Record ed Elsewher e: No Locat ion: Lucialewis silas [facility] S ource: EHR Diagnostic Radiologist asif: N Practi ce ID: 0001 Jaycob lable Time: 03:15:00 PM Sadaf houser, [facility] 16:47:25 Antenata l screenin g for malforma tion Completed 201806/19/2020 Encounte r for antenata l screenin g for malforma tions;Re corded Elsewher e: No Locat ion: Lucialewis silas [facility] S ource: EHR Diagnostic Radiologist asif: N Practi ce ID: 0001 Jaycob lable Time: 02:15:00 PM Sadaf houser, [facility] 1 18:23:51 Normal pregnanc y in multigra charly [id number] Completed 201906/19/2020 Encounte r for supervis ion of other normal pregnanc y, 2nd trimeste r;Record ed Elsewher e: No Locat ion: Wili rosen [facility] S ource: EHR Diagnostic Radiologist asif: N Vadimti ce ID: 0001 Jaycob lable Time: 02:00:00 PM Sadaf houser, [facility] 18:24:26 Gestatio n period, 34 weeks [id number] Completed 201906/19/2020 34 weeks gestatio n of pregnanc y;Record ed Elsewher e: No Locat ion: Luciaalrose rosen [facility] S ource: EHR Diagnostic Radiologist asif: N Practi ce ID: 0001 Jaycob lable Time: 08:30:00 AM Sadaf houser [facility] 18:24:12 Uterine size for dates discrepa ncy Completed 201906/19/2020 Uterine size-juju e discrepa ncy, third trimeste r;Record ed Elsewher e: No Locat ion: Wili rosen [facility] S ource: EHR Diagnostic Radiologist asif: N Practi ce ID: 0001 Jaycob lable Time: 08:30:00 AM Sadaf houser, [facility] 18:24:52 Gestatio n period, 37 weeks [id number] Completed 201906/19/2020 37 weeks gestatio n of pregnanc y;Record ed Elsewher e: No Locat ion: [facility] S ource: EHR Diagnostic Radiologist asif: N Practi ce ID: [id number] Jaycob lable Time: 02:00:00 PM Sadaf houser, [facility] 18:24:15 finding Completed 201906/19/2020 Matern care for oth or susp poor fetl grth, third tri, unsp;Rec orded Elsewher e: No Locat ion: [facility] S ource: EHR Diagnostic Radiologist asif: N Practi ce ID: [id number] Jaycob lable Time: 02:00:00 PM Sadaf houser, [facility] 18:24:09 Single live from singleto n pregnanc y [id number] Completed 201906/19/2020 Single live ;Pr actice ID: [id number] Sadaf houser, [facility] 18:24:42 Gestatio n period, 39 weeks [id number] Completed 201906/19/2020 39 weeks gestatio n of pregnanc y;Practi ce ID: [id number] Sadaf houser, [facility] 18:24:17 Term pregnanc y delivere d [id number] Completed 201906/19/2020 Encounte r for full-ter m uncompli cated delivery ;Practic e ID: [id number] Sadaf houser, [facility] 18:24:48 Pregnanc y [id number] Active 2024 Diane houser, [facility] 5 18:16:30 Problem Notes None recorded. Procedures Surgical History Date Name Laterality Status Provider Name and Address Organization Details Recorded Time 10/04/19 24 IUD Removal completed EITAN BARON MD [address], [place], [address], [facility] 10/04/2023 12:21:55 12/12/19 21 Date of Last Pap Smear completed Angela Rosa [facility] 01/17/2025 17:13:03 10/20/19 20 IUD Insertion completed Georgie Pacheco CNM [address], [place], [address], [facility] 10/20/2019 16:10:12 06/14/19 16 endoscopy completed Sadafkaylah Cardenas [facility] 10/20/2019 17:48:26 06/14/19 09 extraction of wisdom tooth completed Sadafkaylah Cardenas [facility] 10/06/2019 21:03:24 Imaging Results None recorded. Procedure Notes None recorded. Medical Equipment None Reported. Allergies Allergen ID Allergen Name Allergen Category Reaction Reaction Severity Criticality Documentation Date Start Date Code Code System Note Provider Name and Address Organization Details Recorded Time 1274 Product containin g penicilli n (product) medicatio n diarrhea Not available low 12/22/2019 [id number] SNOMED Trista houser [facility] 3 11:40:54 Medications Name Sig Start Date Stop Date Status Note LastModified by Organization Details LastModified Time Mirena 21 mcg/24 hr (up to 8 years) 52 mg intrauter ine device Take by intraute rine route. 10/03 completed Not Available Not Available Not Available citalopra m 40 mg tablet TAKE 1 TABLET BY MOUTH DAILY 02/22 completed Not Available Not Available Not Available azithromy kevan 250 mg tablet TAKE 2 TABLETS (500 MG) BY ORAL ROUTE ONCE DAILY FOR 1 DAY THEN 1 TABLET (250 MG) BY ORAL ROUTE ONCE DAILY FOR 4 DAYS 03/14 completed Not Available Not Available Not Available fluconazo le 150 mg tablet take 1 tablet by oral route once 07/04 completed Prescrib verna Rutledge e: Sharron Locat ion: [facility] Shanna obiearslan By: henry foote DateTime : 01/28/20 10:30:00 AM Not Available Not Available Not Available benzonata te 200 mg capsule 10/05 completed Not Available Not Available Not Available clarithro mycin 500 mg tablet 10/05 completed Not Available Not Available Not Available dextroamp hetamine- amphetami ne 10 mg tablet TAKE ONE TABLET BY ORAL ROUTE DAILY AT TWICE DAILY. TAKE IN THE AM AND AT NOON. active Not Available Not Available No t Available bupropion HCl SR 100 mg tablet,12 hr sustained -release TAKE 1 TABLET BY MOUTH EVERY DAY 02/22 completed Not Available Not Available Not Available ondansetr on 8 mg disintegr ating tablet DISSOLVE 1 TABLET ON THE TONGUE THREE TIMES DAILY NEEDED 03/14 completed Not Available Not Available Not Available bupropion HCl 100 mg tablet TAKE 1 TABLET BY MOUTH DAILY 02/22 completed Not Available Not Available Not Available citalopra m 20 mg tablet TAKE 1 TABLET BY MOUTH EVERY DAY 12/11 completed Not Available Not Available Not Available bupropion HCl 75 mg tablet TAKE 1 TABLET BY MOUTH DAILY 12/11 completed Not Available Not Available Not Available fluoxetin e 10 mg capsule TAKE 1 CAPSULE BY MOUTH DAILY 04/05 completed Not Available Not Available Not Available monteluka st 10 mg tablet TAKE 1 TABLET BY MOUTH EVERY DAY 04/05 completed Not Available Not Available Not Available Prometheg an 25 mg rectal supposito ry UNWRAP AND INSERT 1 SUPPOSIT ORY RECTALLY EVERY 6 HOURS NEEDED FOR FOR NAUSEA AND VOMITING 04/05 completed Not Available Not Available Not Available ondansetr on 4 mg disintegr ating tablet DISSOLVE 1 TABLET ON THE TONGUE EVERY 6 HOURS NEEDED FOR NAUSEA OR VOMITING 02/22 completed Not Available Not Available Not Available methylphe nidate ER 18 mg tablet,ex tended release 24 hr TAKE 1 TABLET BY MOUTH EVERY MORNING 11/28 completed Not Available Not Available Not Available fluoxetin e 20 mg capsule TAKE 1 CAPSULE BY MOUTH EVERY DAY 11/28 completed Not Available Not Available Not Available fluticaso ne propionat e 50 mcg/actua tion nasal spray,shyam pension 10/05 completed Not Available Not Available Not Available sertralin e 50 mg tablet 04/05 completed Not Available Not Available Not Available ParaGard T 380A 380 square mm intrauter ine device 08/09 completed Prescrib ed Elsewher e: Yes Loca tion: Wili rosen [facility] odify By: [email or web address] Encoun ter DateTime : 02/04/20 11:15:00 AM Not Available Not Available Not Available dextroamp hetamine- amphetami ne 5 mg tablet TAKE ONE TABLET BY ORAL ROUTE TWICE DAILY. TAKE IN THE AM AND AT NOON. 02/14 completed Not Available Not Available Not Available mometason e 0.1 % topical cream APPLY THIN LAYER TOPICALL Y TO THE AFFECTED AREA DAILY 04/05 completed Not Available Not Available Not Available amoxicill in 875 mg-potass ium clavulana te 125 mg tablet TAKE 1 TABLET BY MOUTH TWICE DAILY FOR 10 DAYS 11/28 completed Not Available Not Available Not Available escitalop nicolas 10 mg tablet TAKE 1 TABLET BY MOUTH EVERY DAY 04/05 completed Not Available Not Available Not Available ciproflox acin 0.3 %-dexamet hasone 0.1 % ear drops,shyam pension SHAKE LIQUID AND INSTILL 4 DROPS TO AFFECTED EAR TWICE DAILY FOR 7 DAYS 12/11 completed Not Available Not Available Not Available bupropion HCl XL 150 mg 24 hr tablet, extended release TAKE 1 TABLET BY MOUTH DAILY 02/22 completed Not Available Not Available Not Available escitalop nicolas 5 mg tablet TAKE 1 TABLET BY MOUTH DAILY 02/22 completed Not Available Not Available Not Available not taking daily 2024 active Not Available Not Available Not Avai lable drospiren one 3 mg-ethiny l estradiol 0.02 mg tablet Take 1 tablet every day by oral route. 04/05 completed Not Available Not Available Not Available lisdexamf etamine 50 mg capsule TAKE ONE TABLE BY ORAL ROUTE DAILY EVERY MORNING 12/20 completed Not Available Not Available Not Available lisdexamf etamine 30 mg capsule TAKE 1 CAPSULE BY MOUTH EVERY DAY IN THE MORNING 11/28 completed Not Available Not Available Not Available lisdexamf etamine 40 mg capsule TAKE 1 CAPSULE BY MOUTH IN THE MORNING 11/28 completed Not Available Not Available Not Available + DHA 12/11 completed Not Available Not Available Not Available 28 mg-800 mcg tablet 12/11 completed Prescrib ed Elsewher e: Yes Loca tion: [facility] M odify By: [email or web address] Encount er DateTime : 03/23/20 10:00:00 AM Not Available Not Available Not Available Afluria Qd (36 mos up)(PF)60 mcg (15 mcg x4)/0.5 mL IM syringe 10/05 completed Not Available Not Available Not Available Slynd 4 mg (28) tablet take 1 tablet daily active Not Available Not Available No t Available Vitals Date Recorded Body height Body mass index (BMI) Body weight Systolic And Diastolic Provider Name and Address Organization Details Last Updated DateTime 12/20/2024 160.02 cm 25.7 kg/m2 87132.89 g 102/65 mm[Hg] Diane Washington [facility] 12/20/2024 18:15:15 Date Recorded Body height Body mass index (BMI) Body weight Systolic And Diastolic Provider Name and Address Organization Details Last Updated DateTime 01/17/2025 160.02 cm 25.9 kg/m2 21973.49 g 116/74 mm[Hg] Angela [facility] 01/17/2025 17:12:55 Date Recorded Body height Body mass index (BMI) Body weight Systolic And Diastolic Provider Name and Address Organization Details Last Updated DateTime 02/14/2025 160.02 cm 26.7 kg/m2 06846.45 g 101/65 mm[Hg] Angela [facility] 02/14/2025 15:06:28 Date Recorded Body weight Systolic And Diastolic Provider Name and Address Organization Details Last Updated DateTime 03/14/2025 92426.7792 g 100/67 mm[Hg] Diane Simon [facility] 03/14/2025 14:58:56 Social History Question Answer Notes LastModified by Organizat ion Details LastModified Time Tobacco Smoking Status Former Smoker Sadaf Cardenas [facility], [facility] 10/06/2019 21:02:03 Do You Have An Advance Directive? No Information not available 11/28/2024 If You Are , What Was Your Level Of Alcohol Consumption Prior To ? Occasional [email or web address] Information not available 10/06/2019 Are You Blind Or Do You Have Difficulty Seeing? No Information not available 12/11/2020 What Is Your Level Of Caffeine Consumption? Moderate Information not available 01/17/2025 How Much Tobacco Do You Chew? None Information not available 11/28/2024 In The 14 Days Before Symptom Onset, Have You Had Close Contact With A Laboratory-confir med COVID-19 While That Case Was Ill? No [email or web address] Information not available 12/11/2020 In The 14 Days Before Symptom Onset, Have You Had Close Contact With A Person Who Is Under Investigation For COVID-19 While That Person Was Ill? No [email or web address] Information not available 12/11/2020 Have You Been To An Area Known To Be High Risk For COVID-19? No [email or web address] Information not available 12/11/2020 Are You Deaf Or Do You Have Serious Difficulty Hearing? No Information not available 12/11/2020 What Type Of Diet Are You Following? [email or web address] Information not available 11/28/2024 Which Illicit Or Recreational Drugs Have You Used? Marijuana [email or web address] Information not available 10/06/2019 What Is The Highest Grade Or Level Of School You Have Completed Or The Highest Degree You Have Received? [id number] Information not available 11/28/2024 Are There Any Guns Present In Your Home? No Information not available 11/28/2024 What Was The Date Of Your Most Recent Tobacco Screening? 12/11/2020 [email or web address] Information not available 12/11/2020 How Many Children Do You Have? 2 [email or web address] Information not available 10/06/2019 Have You Ever Been Counseled For Unhealthy Alcohol Use? No [email or web address] Information not available 12/11/2020 Do You Use Protection During Sex? No Information not available 11/28/2024 Do You Use Your Seat Belt Or Car Seat Routinely? Yes [email or web address] Information not available 12/11/2020 Do You Have Smoke And Carbon Monoxide Detectors In Your Home? Yes [email or web address] Information not available 12/11/2020 How Much Tobacco Do You Smoke? No [email or web address] Information not available 12/22/2019 Smoking Pre- Yes [email or web address] Information not available 10/06/2019 Do You Use Sunscreen Routinely? Yes [email or web address] Information not available 12/11/2020 Has Tobacco Cessation Counseling Been Provided? No [email or web address] Information not available 12/11/2020 Have You Used IV Drugs? No Information not available 11/28/2024 Sex: Unknown Functional Status Question Answer Note LastModified by Organizat ion Details LastModified Time Do you use any illicit or recreational drugs? No [email or web address] Information not available 12/11/2020 What is your level of alcohol consumption? None Information not available 11/28/2024 Do you or have you ever used smokeless tobacco? Never used smokeless tobacco Information not available 12/22/2019 Are you able to walk independently without assistance or assistive devices? YESWOREST [email or web address] Information not available 12/11/2020 Do you or have you ever used e-cigarettes or vape? Never used electronic cigarettes Information not available 12/22/2019 What is your exercise level? Occasional [email or web address] Information not available 10/06/2019 Mental Status Question Answer Note LastModified by Organization D etails LastModified Time Do you feel stressed (tense, restless, nervous, or anxious, or unable to sleep at night)? [id number] [email or web address] Information not available 01/17/2025 Family History Relationship Description Onset Age of this Age Resolved Age Notes LastModified by Organization Details LastModified Time Maternal Grandmother Milton cutler [email or web address] Not available 10/05 21:00:55 Mother Lymphoma finding 51 [email or web address] Not available 2024 14:40:16 Unspecified Relation Malignant neoplasm of breast matern al great aunt unknow n age [email or web address] Not available 03/14/2025 14:40:17 Notes:Maternal grandmother: High cholesterol Mother: Lymphoma Medical History Condition Response Allergies (Food, seasonal, environmental ) N Other N Breast Cancer N Drug/Latex Allergies/Reactions N Blood Transfusion N Dermatologic Disorders N Lung Disease N Defects or Inherited Disease N Breast Problem N Gestational Diabetes N Hematologic disorders N Anesthesia Complications N History of STI N Deep Vein Thrombosis N Polycystic ovary syndrome N Anxiety Disorder Y Autoimmune disease N Arthritis N Infertility N Polyps N Acid Reflux (GERD) N History of abnormal pap N Cancer N Stroke N Varicosities N Neurologic/Epilepsy N Endometriosis N High Cholesterol N Headaches N Fibromyalgia N Kidney Disease N Heart Problems N Kidney or Bladder Problems N Thyroid Problems N GI Problems N Eating Disorder N Anemia N Art (IVF or FET) N Psychiatric Illness Y Ovarian Cancer N Diabetes N Pulmonary (TB, Asthma) N Hepatitis/Liver Disease N No Past Medical History N Eczema N Urinary Tract Infection N Abuse/Domestic Violence N Asthma N Trauma/Violence N Depression/ depression Y Heart Disease N Pre-Eclampsia N Hypertension N Osteoporosis N Thrombophilias N Gynecological History Statement/Question Response Abnormal Pap N Flow Moderate Date of LMP 03/11/2024 N On BCP's at Conception? N STIs/STDs N Was last menstrual period normal N HPV Vaccine N Duration of Flow (days) 7 Current Control Method None Age at First Child 23 Are cycles usually normal Y Frequency of Cycle (Q days) 28 Sexually Active? Y N/A Menses Monthly Y Age of first menstrual cycle 16 Date of Last Pap Smear 12/11/2020 Sexual Problems? N LMP Unknown Desired Control Method Sterilizati on N Obstetrics History GPAL:G 4 P 2 0 1 2 Type Value Full Term 2 Induced 1 Living 2 Total 4 Past Encounters Encounter ID Performer Location Encounter Start Date Encounter Closed Date Diagnosis/Indication Diagnosis SNOMED-CT Code Diagnosis ICD10 Code Diagnosis IMO Codes Diagnosis Note [id number] Georgie Pacheco CNM [facility] [address] [address] 10/06/2019 14:10:30 10/06/2019 16:01:16 care [id number] Z39.2 [id number] Georgie Pacheco CNM [facility] [address] [place] [address] 10/20/2019 15:28:38 10/20/2019 16:13:16 Insertion of intrauterine contraceptive device 68006923 Z30.430 [id number] Georgie Pacheco CNM [facility] [address],[place] [address] 11/24/2019 14:38:25 12/08/2019 09:30:11 [id number] [facility] [address] [address] 12/22/2019 14:21:58 12/22/2019 16:11:35 Pain in pelvis 68911853 R10.2 order us for next week, suspect ovulation/ cyst, if pain resolves may cancel us, iud in place IUD check 644343631 Z30. 431 [id number] EITAN BARON MD [facility] [address],[place] [address] 10/04/2023 11:37:20 10/08/2023 07:36:11 Removal of intrauterine contraceptive device 8100929858 Z30.432 - patient tolerated removal without issue- discussed anxiety may not improve; patient following with psychiatri st, will make f/u appointmen t if anxiety continues to worsen- would like to start OCPs- follow up for WWE 02/2024 or sooner PRN [id number] Josiah Patel MD [facility] [address],[place] [address] 12/28/2019 17:52:34 12/31/2019 12:06:45 Pain in pelvis 33138673 R10.2 [id number] [facility] [address],[place] [address] 06/19/2020 17:51:28 06/20/2020 17:22:16 IUD check 899066093 Z30.431 [id number] Josiah Patel MD [facility] [address],[place] [address] 06/20/2020 17:22:30 06/21/2020 12:05:46 Pain in pelvis 91527002 R10.2 [id number] [facility] [address],[place] [address] 12/11/2020 16:25:21 12/11/2020 17:10:14 Gynecologic examination 32749841 Z01.419 [id number] Josiah Patel MD [facility] [address],[place] [address] 12/19/2020 16:25:27 12/19/2020 16:52:11 Mechanical complication of intrauterine contraceptive device 357260805 T83.39XA [id number] EITAN BARON MD [facility] [address],[place] [address] 02/22/2023 11:30:12 02/22/2023 12:42:21 Gynecologic examination 14679509 Z01.419 [facility]- Cervical cancer screening: Pap smear not indicated (next 11/2023)- Breast cancer screening: mammogram not indicated- Colon cancer screening: does not qualify- STD testing: declined- hereditary cancer screening: does not qualify for testing Intrauteri ne contraceptive device in situ 425100484 Z97.5 - Mirena inserted 10/2019; due for removal 10/2027- amenorrhei c- happy with current method; strings seen on exam Pain of left breast 1010 217135 N64.4 - reports pain possibly cyclical of left breast, fibrocysti c tissue on exam- ultrasound ordered to r/o pathology [id number] EITAN BARON MD [facility] [address],[place] [address] 04/05/2024 14:03:41 04/10/2024 10:14:27 Abnormal uterine bleeding 4331598238 9100 N93.9 - patient reports irregular cycles since starting Nakia- stopped Nakia in December due to irregular periods- periods improving- will continue to monitor bleeding at this time- UPT negative Irregular periods 331070 07 N92.6 [id number] EITAN BARON MD [facility] [address],[place] [address] 11/28/2024 15:51:34 11/28/2024 16:28:43 [id number] EITAN BARON MD [facility] [address],[place] [address] 11/28/2024 15:52:00 11/28/2024 17:15:10 Nausea 046238180 R11.0 71061 test positive 743915207 Z32.01 [id number] 1. Exam today within normal limits.2. Ultrasound today confirms GA and viability. EDC . GC/Clamydi a testing and pap smear done: will f/u as indicated. 4. ACOG guidelines and plan of care for reviewed with patient. All questions answered.5 . Return to office at 12 weeks for new OB visit6. Will need new OB labs at next visit.7. Genetic screening: desires. screening 2437 66480 Z36.89 Genetic in vestigation procedure 43720994 Z31.430 [id number] Josiah Patel MD [facility] [address],[place] [address] 12/20/2024 17:31:22 12/21/2024 09:02:54 screening 657329731 Z36.82 Z3A.11 [id number] Georgie Pacheco CNM [facility] [address],[place] [address] 12/20/2024 17:32:57 12/22/2024 12:43:53 Gestation period, 12 weeks 02902766 Z3A.12 3778738 [id number] Georgie Pacheco CNM [facility] [address],[place] [address] 01/17/2025 17:02:29 01/17/2025 17:36:03 Gestation period, 15 weeks 2743730 Z3A.15 1323147 cont pnv [id number] Josiah Patel MD [facility] [address],[place] [address] 02/14/2025 13:57:47 02/14/2025 14:59:50 Ultrasound scan - obstetric 789101330 Z36.3 Z3A.19 [id number] Georgie Pacheco CNM [facility] [address],[place] [address] 02/14/2025 13:58:05 02/14/2025 15:15:40 Gestation period, 19 weeks 90060669 Z3A.19 7202142 Acute uppe r respiratory infection 24720147 J06.9 [id number] Georgie Pacheco CNM [facility] [address] [address] 03/14/2025 14:40:13 03/14/2025 15:20:21 Gestation period, 23 weeks 69458045 Z3A.23 [id number] cont pnv Health Concerns Section Related Observation LastModified by Organization Detai ls LastModified Time None Recorded Concern Status LastModified by Organization Details LastModified Time None Recorded Advance Directives Directive N: Payers Insurance Date Sequence Insurance Name Policy Number Policy Singh Covered Member ID Singh Member ID Guarantor Name 04/11/2025 1 [facility] (MEDICAID HMO) [id number] [facility] [id number] [facility] Notes Date Note Type Note Provider Name and Address Organization Details Recorded Time 01/17/2025 text/html Generic HPI TemplateReported by Patient Georgie Pacheco CNM [address], [place], [address], [facility] 01/17/2025 17:27:38 02/14/2025 text/html Generic HPI TemplateReported by Patient Georgie Pacheco CNM [address], [place], [address], [facility] 02/14/2025 15:14:45 03/14/2025 text/html Generic HPI TemplateReported by Patient Georgie Pacheco CNM [address], [place], [address], [facility] 03/14/2025 15:11:51 OBGyn Episode Ob Episode Information Episode Created Date Number of Fetuses Patient Bloodtype Patient rh Status Prepregnancy Weight lbs Domestic Partner Domestic Partner Phone Father Name Trawl Net Maker Status 10/06/19 20 1 CLOSED Fetus Data First Name Last Name Admitted to NICU Weight (g) Sex Living Outcome Pediatric Complications Fetus ID Race Codes Race Delivery Type , Induced 815 Alberto Calculation Initial Alberto Date Initial Exam Date Initial Exam Provider Initial Ultrasound Date Last Menstrual Period Date Ultra Sound Weeks Gestation 0 Eighteen To Twenty Week Alberto Update Ultra Sound Date Fundal Height At Umbil Quickening Date Ultra Sound Latest Weeks Gestation Final Alberto Confirmed By Final Alberto Confirmed Date Final Alberto Date Ultra Sound Latest Days Gestation 0 0 Menstrual History Last Menstrual Date Menses Monthly On Bcp Conception Prior Menses Frequency Hcg Plus Date Menarche Onset Age Delivery Information Delivery Date Delivery Type Labor Anesthesia Weeks Gestation Incision Type Labor Labor Length Hrs Delivered By Post Complications Tubal Sterilization Discharge Date Comments 3 2013 Discharge Information Feeding Method Contraceptive Method Maternal HG B and HCT Levels Ob Episode Information Episode Created Date Number of Fetuses Patient Bloodtype Patient rh Status Prepregnancy Weight lbs Domestic Partner Domestic Partner Phone Father Name Trawl Net Maker Status 10/06/19 20 1 CLOSED Fetus Data First Name Last Name Admitted to NICU Weight (g) Sex Living Outcome Pediatric Complications Fetus ID Race Codes Race Delivery Type 3089.86 8704 F Full Term 817 Vaginal Delivery Alberto Calculation Initial Alberto Date Initial Exam Date Initial Exam Provider Initial Ultrasound Date Last Menstrual Period Date Ultra Sound Weeks Gestation 0 Eighteen To Twenty Week Alberto Update Ultra Sound Date Fundal Height At Umbil Quickening Date Ultra Sound Latest Weeks Gestation Final Alberto Confirmed By Final Alberto Confirmed Date Final Alberto Date Ultra Sound Latest Days Gestation 0 0 Menstrual History Last Menstrual Date Menses Monthly On Bcp Conception Prior Menses Frequency Hcg Plus Date Menarche Onset Age Delivery Information Delivery Date Delivery Type Labor Anesthesia Weeks Gestation Incision Type Labor Labor Length Hrs Delivered By Post Complications Tubal Sterilization Discharge Date Comments 0 39 Margie Discharge Information Feeding Method Contraceptive Method Maternal HG B and HCT Levels Ob Episode Information Episode Created Date Number of Fetuses Patient Bloodtype Patient rh Status Prepregnancy Weight lbs Domestic Partner Domestic Partner Phone Father Name Trawl Net Maker Status 10/06/19 20 1 CLOSED Fetus Data First Name Last Name Admitted to NICU Weight (g) Sex Living Outcome Pediatric Complications Fetus ID Race Codes Race Delivery Type 2976.47 0704 M Full Term 816 Vaginal Delivery Alberto Calculation Initial Alberto Date Initial Exam Date Initial Exam Provider Initial Ultrasound Date Last Menstrual Period Date Ultra Sound Weeks Gestation 0 Eighteen To Twenty Week Alberto Update Ultra Sound Date Fundal Height At Umbil Quickening Date Ultra Sound Latest Weeks Gestation Final Alberto Confirmed By Final Alberto Confirmed Date Final Alberto Date Ultra Sound Latest Days Gestation 0 0 Menstrual History Last Menstrual Date Menses Monthly On Bcp Conception Prior Menses Frequency Hcg Plus Date Menarche Onset Age Delivery Information Delivery Date Delivery Type Labor Anesthesia Weeks Gestation Incision Type Labor Labor Length Hrs Delivered By Post Complications Tubal Sterilization Discharge Date Comments 4 40 Eran Discharge Information Feeding Method Contraceptive Method Maternal HG B and HCT Levels Ob Episode Information Episode Created Date Number of Fetuses Patient Bloodtype Patient rh Status Prepregnancy Weight lbs Domestic Partner Domestic Partner Phone Father Name Trawl Net Maker Status 12/21/19 25 1 O Negative Gino OPEN Fetus Data First Name Last Name Admitted to NICU Weight (g) Sex Living Outcome Pediatric Complications Fetus ID Race Codes Race Delivery Type [id number] Alberto Calculation Initial Alberto Date Initial Exam Date Initial Exam Provider Initial Ultrasound Date Last Menstrual Period Date Ultra Sound Weeks Gestation 12/20/2024 11/28/2024 09/28/2024 8 Eighteen To Twenty Week Alberto Update Ultra Sound Date Fundal Height At Umbil Quickening Date Ultra Sound Latest Weeks Gestation Final Alberto Confirmed By Final Alberto Confirmed Date Final Alberto Date Ultra Sound Latest Days Gestation 0 [email or web address] 12/22/2024 07/05/19 26 0 Pre-twin Flowsheet Flowsheet Date 12/20/2024 Castellanos Score Blood Edema Fundus Height Fundus Units Glucose Ketones Leukocytes Nitrite Labor Signs Protein Cervic Dilation Cervic Effacement Cervic Station Type Weight in lbs Pre/Post Dialysis Refused Weight 145.384646798403 BP Diastolic BP Location Tested BP Systolic BP Type 65 L arm 102 sitting Fetus Heart Rate Present Fetus Movement A No Comments reviewed us, hx 2 previous u ncomplicated vaginal deliveries, reviewed education and precautions begin routine care Flowsheet Date 01/17/2025 Castellanos Score Blood Edema Fundus Height Fundus Units Glucose Ketones Leukocytes Nitrite Labor Signs Protein Cervic Dilation Cervic Effacement Cervic Station Type Weight in lbs Pre/Post Dialysis Refused Weight 146.527721256494 BP Diastolic BP Location Tested BP Systolic BP Type 74 L arm 116 sitting Fetus Heart Rate Present A 155 Present Fetus Movement A Yes Comments +FM, doing well, education a nd precautions f/u 4 weeks anatomy Flowsheet Date 02/14/2025 Castellanos Score Blood Edema Fundus Height Fundus Units Glucose Ketones Leukocytes Nitrite Labor Signs Protein Cervic Dilation Cervic Effacement Cervic Station Type Weight in lbs Pre/Post Dialysis Refused BP Diastolic BP Location Tested BP Systolic BP Type Fetus Heart Rate Present Fetus Movement Comments Flowsheet Date 02/14/2025 Castellanos Score Blood Edema Fundus Height Fundus Units Glucose Ketones Leukocytes Nitrite Labor Signs Protein Cervic Dilation Cervic Effacement Cervic Station Type Weight in lbs Pre/Post Dialysis Refused Weight 151.763242896121 BP Diastolic BP Location Tested BP Systolic BP Type 65 L arm 101 sitting Fetus Heart Rate Present Fetus Movement A Yes Comments anatomy complete, +FM, sinus congestion x 3 weeks rx zpack ok alyssa schmittyl call if sxs not improving, education and precautions f/u 4 weeks Flowsheet Date 03/14/2025 Castellanos Score Blood Edema Fundus Height Fundus Units Glucose Ketones Leukocytes Nitrite Labor Signs Protein Cervic Dilation Cervic Effacement Cervic Station Type Weight in lbs Pre/Post Dialysis Refused 160.250133599899 BP Diastolic BP Location Tested BP Systolic BP Type 67 L arm 100 sitting Fetus Heart Rate Present A 154 Fetus Movement A Yes Comments doing well +FM, education an d precautions, glucose and rhogam next visit f/u 4 weeks Menstrual History Last Menstrual Date Menses Monthly On Bcp Conception Prior Menses Frequency Hcg Plus Date Menarche Onset Age 0409/28/2024 true Delivery Information Delivery Date Delivery Type Labor Anesthesia Weeks Gestation Incision Type Labor Labor Length Hrs Delivered By Post Complications Tubal Sterilization Discharge Date Comments Discharge Information Feeding Method Contraceptive Method Maternal HG B and HCT Levels
--- OUTSIDE RECORDS SUMMARY | 2025-04-11 13:25 | XMS_ITS | Patient Health Record ---
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 Name Role Phone Lai Escalera Primary Care Provider Allergies No Known Allergies Reason For Referral No Information Medications Medication SIG (Take, Route, Fr equency, Duration) Notes Start Date End Date Status Singulair 10 MG 1 tablet Orally Once a day Unknown FLUoxetine HCl 10 MG 1 capsule Orally On ce a day; Duration: 30 days Active Social History Tobacco Use: Social History Observation Description Date Details (start date - stop date) Unknown Dont use, Tobacco Use/Smoking Question Answer Notes Are you a Uses tobacco in other forms Problems Problem Type SNOMED Code ICD Code Onset Dates Problem Status W/U Status Risk Notes Problem Panic (54732213) Panic (F41.0) 4 Active confirmed Problem Generalized anxiety disorder (51907488) Anxiety, generalized (F41.1) 4 Active confirmed Problem Obsessive-compul sive disorder (403851265) Obsessive-compu lsive disorder, unspecified (F42.9) 4 Active confirmed Problem Moderate recurrent major depression (21084171) Depression, major, recurrent, moderate (F33.1) 4 Active confirmed Plan Of Treatment No Information Insurance Providers Payer Name Payer Address Payer Phone Subscriber Number Group Number Insured Name Patient Relationship to Insured Coverage Start Date Coverage End Date [employer] [address] [place] [address] [id number] Narayan Crossanna Self - patient is the insured 3 [employer] [address] [place] [address] [id number] Tay Donna Self - patient is the insured 3 Medical (General) History Surgical History Surgery Date(Month/Year) Has IUD Hospitalization History Reason Date(Month/Year) child x2 GI issues 2015
[2025-04-11 13:29] LABS: Hematocrit 29.3 % (37.0-47.0); Hemoglobin 9.6 g/dL (12.0-15.0)
[2025-04-11 13:51] LABS: Glucose 1 Hour PP 50gm Dose 78 mg/dL
[2025-04-11 14:31] LABS: HIV 1/2 Ab P24 Ag Result Negative (Negative)
[2025-04-11] MEDS: RHO(D) IMMUNE GLOBULIN 300 MCG/2 ML SYRINGE IM (20:07)
== END 2025-04-11 11:57 | disposition home or self-care (01) ==
LOC: ANHLAB 12:01
PROVIDERS: Visit Provider Advanced Practice Midwife
DX: Z36.89 Encounter for other specified antenatal screening (principal); I10 Essential (primary) hypertension; O36.0130 Maternal care for anti-D [Rh] antibodies, third trimester, not applicable or unspecified; Z3A.00 Weeks of gestation of pregnancy not specified
CPT/HCPCS: 36415; 82947; 85014; 85018; 85461; 86703; 86850; 86900; 86901; 90384; 96372; G0432; J2790

== ENCOUNTER 2025-05-07 13:00 | Outpatient (RCR) | payer OTHER, SELFPAY ==
--- NOTE | 2025-03-23 10:58 | OPREHPOC ---
Outpatient Therapy Plan of Care This is a Multidisciplinary Plan of Care that may contain components documented by all disciplines (PT, OT, and ST.) PT Problem 1 PT Problem #1 Knowledge Deficit PT Goal 1 Goal / Goal Update 1. Patient will perform independent HEP Target Visit 3 PT Problem 2 PT Problem #2 Pain PT Goal 1 Goal / Goal Update 1. Pain no higher than 1/10 with typical activities 2. No pain with palpation of pubic symphysis Target Visit 8 PT Problem 3 PT Problem #3 Impaired Functional ADLs PT Goal 1 Goal / Goal Update 1. Patient will report no difficulty with bed transfers or household ambulation Target Visit 8 PT Problem 4 PT Problem #4 Impaired Strength PT Goal 1 Goal / Goal Update 1. Hip abduction 5/5 and pain free to support spine and pelvis throughout progressing Target Visit 8
--- NOTE | 2025-03-23 10:58 | PTOPEVAL1 ---
Assessment and note entered by Kiley Pierson DPT Evaluation Information Assessment Status Evaluation ICD-10 Condition Codes (PT) Pain in low back M54.50,Pain in right hip M25.551, Pain in left hip M25.552,Pelvic and perineal pain R10.2 Subjective Information Pt is currently 25 weeks and has pain that started a few months ago and is steadily worsening. Pt points to low back as source of pain currently, worse on L. Also has pain in anterior pelvis. Has a lot of trouble getting out of bed and walking. Highest pain recently 3/10 and lowest 0/10. Has had a little tingling near her knee as well. This is patient's 3rd , has had 2 vaginal deliveries with episiotomy with her first. 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 Has had stress incontinence with all her pregnancies but it has resolved in the past. Patient goal: get working normal again Returns to MD the . Reported Pain Level Pain Score 0: Self Report Assessment PT Clinical Summary The patient is presenting to skilled therapy at 25 weeks with low back, hip, and pelvic pain. She presents with decreased strength, signs of neural tension, and SIJ impairments which are contributing to her pain and difficulty with typical activities including getting out of bed and walking. She will benefit from therapy to address these impairments in order to reduce pain and improve function as her progresses. Plan of Care Interventions Gait Training,Hot Pack/Cold Pack,Manual Therapy, Patient/Caregiver Education,Therapeutic Activities ,Therapeutic Exercise PT Services Indicated Yes Treatment Frequency and 1-2 times a week for 8 visits Duration These treatments will address the objective and functional deficits as defined above. The patient will be advanced safely and appropriately in order for the patient to progress towards his/her prior level of function. Additional exercises will be introduced and as well as a comprehensive home exercise program upon discharge, if needed, ?to ensure carryover of functional gains achieved in the clinic. This treatment plan has been reviewed and agreement upon by the patient.
--- NOTE | 2025-05-07 13:38 | OPREHPOC ---
Outpatient Therapy Plan of Care This is a Multidisciplinary Plan of Care that may contain components documented by all disciplines (PT, OT, and ST.) PT Problem 1 PT Problem #1 Knowledge Deficit PT Goal 1 Goal / Goal Update 1. Patient will perform independent HEP Target Visit 3 Progress Met PT Problem 2 PT Problem #2 Pain PT Goal 1 Goal / Goal Update 1. Pain no higher than 1/10 with typical activities 2. No pain with palpation of pubic symphysis update 05/07/25 1. not met 2. met Target Visit 8 Progress Partially Met PT Problem 3 PT Problem #3 Impaired Functional ADLs PT Goal 1 Goal / Goal Update 1. Patient will report no difficulty with bed transfers or household ambulation update 05/07/25 1. some improvements Target Visit 8 Progress Partially Met PT Problem 4 PT Problem #4 Impaired Strength PT Goal 1 Goal / Goal Update 1. Hip abduction 5/5 and pain free to support spine and pelvis throughout progressing Target Visit 8 Progress Not Met
--- NOTE | 2025-05-07 13:38 | PTOPPROG ---
Assessment and note entered by Kiley Pierson DPT Evaluation Information Assessment Status Progress ICD-10 Condition Codes (PT) Pain in low back M54.50,Pain in right hip M25.551, Pain in left hip M25.552,Pelvic and perineal pain R10.2 Subjective Information Pt is now almost 32 weeks . Overall feels improvements with therapy. Reports her anterior pain has improved and still has difficulty with getting out of bed. Highest pain 3/10 and lowest 0 /10. Tingling has gone away. Constipation has improved and still has stress incontinence which is about the same. Assessment PT Clinical Summary The patient has made some progress in therapy and reports her anterior pelvic pain has decreased. She continues to have pain posteriorly and difficulty with rolling over and getting out of bed. She does demonstrate no pain with palpation of pubic symphysis this date and reports no signs of neural tension. Due to the patient's current schedule with other appointments, she would like to hold on scheduling therapy at this time. She has been educated to follow up with therapist as needed until her ends, will discharge her case at that time. Plan of Care Interventions Gait Training,Hot Pack/Cold Pack,Manual Therapy, Patient/Caregiver Education,Therapeutic Activities ,Therapeutic Exercise PT Services Indicated Yes Treatment Frequency and patient will call to schedule as needed Duration These treatments will address the objective and functional deficits as defined above. The patient will be advanced safely and appropriately in order for the patient to progress towards his/her prior level of function. Additional exercises will be introduced and as well as a comprehensive home exercise program upon discharge, if needed, ?to ensure carryover of functional gains achieved in the clinic. This treatment plan has been reviewed and agreement upon by the patient.
== END 2025-05-07 16:13 | disposition home or self-care (01) ==
LOC: ANHGOSHPT 13:00
PROVIDERS: Visit Provider Advanced Practice Midwife
DX: M25.551 Pain in right hip (principal)
CPT/HCPCS: 97110; 97112; 97140; 97161; 97530